=== PATIENT | female | born 1990 | race Caucasian/White ===

== ENCOUNTER 2017-01-17 06:29 | Emergency (ER) | payer OTHER ==
[2017-01-17 06:38] VITALS: TEMP 97.9
--- NOTE | 2017-01-17 07:12 | EDPHY ---
H & P Time Seen by Provider: 01/17/17 07:00 HPI/ROS: CHIEF COMPLAINT: Seizure HISTORY OF PRESENT ILLNESS: The patient is a 33-year-old female with a history of seizure disorder. She currently takes both lamotrigine and zonisamide. The patient states "I'm tired." When I asked her why she is in the emergency department she states "some stupid people brought me in." Per EMS and a friend' s report she was at work when she had seizure-like activity. They laid her on her side. She was initially confused but has improved. Patient states that she only has a seizure once in a while. She denies any headache or neck pain. She denies injury from procedure. She has no complaints at this time other than feeling tired. She states she is compliant with her medication. No drug or alcohol use recently. REVIEW OF SYSTEMS: My complete review of systems is negative except as mentioned in the HPI. Past Medical/Surgical History: Includes seizure disorder and attention deficit hyperactivity disorder Past surgical history: Negative Social history: The patient smokes daily. She denies drug use. Smoking Status: Current every day smoker Physical Exam: Vitals noted GENERAL: Well-appearing, in no acute distress, alert. HEAD: No evidence of trauma. EYES: PERRLA, EOMI, normal to inspection. ENT: Airway intact, no dental or oral injury, no malocclusion, normal external examination. NECK: The trachea is midline. There is no crepitus. The C-spine is nontender. NEXUS criteria is negative (no midline tenderness, no distracting injury, no altered mental status, no recent alcohol use, no focal neurologic deficit). RESPIRATORY: Clear to auscultation bilaterally, no rales, rhonchi or wheezing. There is no crepitus or palpable rib fractures. CVS: Regular rate and rhythm, no rubs, murmurs, or gallops. ABDOMEN: Soft, nontender, nondistended, normal bowel sounds, no bruising or abrasions. Pelvis: Stable. No tenderness palpation. Hips full range of motion. BACK: Normal to inspection, no spinal tenderness, no spinal step off, no notable bruising or abrasions. SKIN: Normal color, warm, dry. No pallor or diaphoresis. Multiple tattoos. EXTREMITIES: Atraumatic, neurovascularly intact distally in all extremities, pelvis is stable , hips with full range of motion, moves all extremities freely. NEURO/PSYCH: Alert and oriented x 3, GCS 15, normal mood and affect, normal motor sensory exam. Constitutional: Initial Vital Signs Temperature (C) 36.6 C 01/17/17 06:33 Heart Rate 69 01/17/17 06:33 Respiratory Rate 18 01/17/17 06:33 Blood Pressure 116/75 01/17/17 06:33 O2 Sat (%) 95 01/17/17 06:33 O2 Delivery Mode Room Air O2 (L/minute) 2 Allergies/Adverse Reactions: aloe Allergy (Verified 01/17/17 06:38) peanut Allergy (Verified 01/17/17 06:38) Home Medications: Medication Instructions Recorded LAMOTRIGINE 01/17/17 Zonisamide 01/17/17 Medical Decision Making ED Course/Re-evaluation: In the emergency department I discussed possible etiologies with the patient. I answered all her questions. IV was placed. The patient was given normal saline 500 mL IV for hydration. Laboratory studies were ordered. At this time the patient denies any headache. I see no signs of head or neck trauma. I do not think the patient needs CT imaging. 758: I reviewed the patient's laboratory studies. Her CBC and chemistry were normal. was negative. 832: I rechecked the patient. She was sleeping the room. She is easily aroused. She states she does not know how long she is normally postictal after seizures. An alcohol and U tox were added to her evaluation. I rechecked the patient while here. She was stable without new complaints. She had a nonfocal neuro exam. PCP positive. THC positive. Alcohol negative. I discussed the results with the patient. Patient was able to ambulate without difficulty. She had no further seizure activity. She was doing well prior to discharge. She is given warnings prior to leaving. Differential Diagnosis: My differential includes but is not limited to seizure, subarachnoid hemorrhage , subdural hematoma, epidural hematoma, skull fracture, spinal fracture, electrolyte abnormality, sugar abnormality, medication noncompliance, electrolyte abnormality, sugar abnormality - Data Points Laboratory Results: Laboratory Results 01/17/17 06:30 01/17/17 06:30 01/17/17 01/17/17 01/17/17 08:30 06:30 06:30 WBC RBC Hgb Hct MCV MCH MCHC RDW Plt Count MPV Neut % (Auto) Lymph % (Auto) Vilas % (Auto) Eos % (Auto) Baso % (Auto) Nucleat RBC Rel Count Absolute Neuts (auto) Absolute Lymphs (auto) Absolute Monos (auto) Absolute Eos (auto) Absolute Basos (auto) Absolute Nucleated RBC Immature Gran % Immature Gran # Sodium Potassium Chloride Carbon Dioxide Anion Gap BUN Creatinine Estimated GFR Glucose Calcium Beta HCG, Qual NEGATIVE Urine Opiates Screen NEGATIVE (NEGATIVE) Urine Barbiturates NEGATIVE (NEGATIVE) Ur Phencyclidine Scrn NON-NEGATIVE H (NEGATIVE) Ur Amphetamine Screen NEGATIVE (NEGATIVE) U Benzodiazepines Scrn NEGATIVE (NEGATIVE) Urine Cocaine Screen NEGATIVE (NEGATIVE) U Marijuana (THC) Screen NON-NEGATIVE H (NEGATIVE) Ethyl Alcohol < 10 mg/dL mg/dL (0-10) 01/17/17 01/17/17 06:30 06:30 WBC 8.10 10^3/uL 10^3/uL (3.80-9.50) RBC 4.60 10^6/uL 10^6/uL (4.18-5.33) Hgb 15.1 g/dL g/dL (12.6-16.3) Hct 43.0 % % (38.0-47.0) MCV 93.5 fL fL (81.5-99.8) MCH 32.8 pg pg (27.9-34.1) MCHC 35.1 g/dL g/dL (32.4-36.7) RDW 12.1 % % (11.5-15.2) Plt Count 241 10^3/uL 10^3/uL (150-400) MPV 9.7 fL fL (8.7-11.7) Neut % (Auto) 49.7 % % (39.3-74.2) Lymph % (Auto) 40.5 % % (15.0-45.0) Vilas % (Auto) 6.9 % % (4.5-13.0) Eos % (Auto) 2.1 % % (0.6-7.6) Baso % (Auto) 0.4 % % (0.3-1.7) Nucleat RBC Rel Count 0.0 % % (0.0-0.2) Absolute Neuts (auto) 4.03 10^3/uL 10^3/uL (1.70-6.50) Absolute Lymphs (auto) 3.28 10^3/uL H 10^3/uL (1.00-3.00) Absolute Monos (auto) 0.56 10^3/uL 10^3/uL (0.30-0.80) Absolute Eos (auto) 0.17 10^3/uL 10^3/uL (0.03-0.40) Absolute Basos (auto) 0.03 10^3/uL 10^3/uL (0.02-0.10) Absolute Nucleated RBC 0.00 10^3/uL 10^3/uL (0-0.01) Immature Gran % 0.4 % % (0.0-1.1) Immature Gran # 0.03 10^3/uL 10^3/uL (0.00-0.10) Sodium 142 mEq/L mEq/L (134-144) Potassium 3.8 mEq/L mEq/L (3.5-5.2) Chloride 106 mEq/L mEq/L (97-110) Carbon Dioxide 22 mEq/l mEq/l (22-31) Anion Gap 14 mEq/L mEq/L (8-16) BUN 16 mg/dL mg/dL (7-23) Creatinine 1.0 mg/dL mg/dL (0.6-1.0) Estimated GFR > 60 Glucose 96 mg/dL mg/dL (70-100) Calcium 9.5 mg/dL mg/dL (8.5-10.4) Beta HCG, Qual Urine Opiates Screen Urine Barbiturates Ur Phencyclidine Scrn Ur Amphetamine Screen U Benzodiazepines Scrn Urine Cocaine Screen U Marijuana (THC) Screen Ethyl Alcohol Medications Given: Discontinued Medications Sodium Chloride (Ns) 500 mls @ 0 mls/hr IV ONCE ONE; Wide Open PRN Reason: Protocol Stop: 01/17/17 07:29 Last Admin: 01/17/17 07:42 Dose: 500 mls Departure - Departure Disposition: Home, Routine, Self-Care Clinical Impression: Seizure Condition: Good Instructions: New-Onset Seizure in Adults (ED) Additional Instructions: Take your medication as directed. Avoid drug use. Follow up with Dr. Mathis from Neurology. Referrals: Patient,NotPresent [Unknown] - As per Instructions Isaias Mathis MD [Medical Doctor] - As per Instructions
[2017-01-17] MEDS ORDERED: NS 500 ML IV ONE (07:28)
[2017-01-17 07:40] LABS: % IMMATURE GRANULYOCYTES 0.4 % (0.0-1.1); ABSOLUTE IMMATURE GRANULOCYTES 0.03 10^3/uL (0.00-0.10); ADD DIFF? NO; ADD MORPH? NO; ADD SCAN? NO; ATYPICAL LYMPHOCYTE FLAG 10 (0-99); FRAGMENT RBC FLAG 0 (0-99); HEMOGLOBIN 15.1 g/dL (12.6-16.3); LEFT SHIFT FLG 0 (0-99); LIPEMIA HEMOLYSIS FLAG 90 (0-99); MEAN CELL HEMOGLOBIN 32.8 pg (27.9-34.1); MEAN CELL HEMOGLOBIN CONCENTR. 35.1 g/dL (32.4-36.7); MEAN CELL VOLUME 93.5 fL (81.5-99.8); MEAN PLATELET VOLUME 9.7 fL (8.7-11.7); PLATELET CLUMPS FLAG 10 (0-99); PLATELET COUNT 241 10^3/uL (150-400); RED CELL DISTRIBUTION WIDTH 12.1 % (11.5-15.2)
[2017-01-17 07:42] LABS: ANION GAP 14 mEq/L (8-16); CALCIUM 9.5 mg/dL (8.5-10.4); CARBON DIOXIDE 22 mEq/l (22-31); CHLORIDE 106 mEq/L (97-110); GLOMERULAR FILTRATION RATE > 60; GLUCOSE 96 mg/dL (70-100); POTASSIUM 3.8 mEq/L (3.5-5.2); SODIUM 142 mEq/L (134-144)
[2017-01-17 07:45] VITALS: RESP 16
[2017-01-17 08:43] LABS: ETHANOL SERUM < 10 mg/dL (0-10)
[2017-01-17 09:24] VITALS: O2SAT 94
[2017-01-17 11:18] VITALS: BP 112/61; PULSE 69
== END 2017-01-17 11:45 | disposition home or self-care (01) ==
DX: G40.909 Epilepsy, unspecified, not intractable, without status epilepticus (principal); F17.200 Nicotine dependence, unspecified, uncomplicated; E86.9 Volume depletion, unspecified; Z91.010 Allergy to peanuts
CPT/HCPCS: 80305; G0480